=== PATIENT | male | born 1970 | race African-American/Black ===

== ENCOUNTER 2024-04-11 17:47 | Inpatient (IN) | payer OTHER ==
[2024-04-11] MEDS ORDERED: BENZONATATE 200 MG CAPSULE PO PRN (20:52)
[2024-04-11] MEDS ORDERED: ONDANSETRON *ODT* 4 MG TABLET SL PRN (20:52)
[2024-04-11] MEDS ORDERED: NALOXONE (NARCAN) HCL 4 MG/0.1 ML SPRAY NS PRN (20:52)
[2024-04-11] MEDS ORDERED: DICYCLOMINE HCL 10 MG CAPSULE PO PRN (20:52)
[2024-04-11] MEDS ORDERED: hydrOXYzine PAMOATE 25 MG CAPSULE (FP) PO PRN (20:52)
[2024-04-11] MEDS ORDERED: guaiFENesin 600 MG TABLET.ER (FP) PO PRN (20:52)
[2024-04-11] MEDS ORDERED: ACETAMINOPHEN 325 MG TABLET (FP) PO PRN (20:52)
[2024-04-11] MEDS ORDERED: POLYETHYLENE GLYCOL (HEALTHYLAX) 3350 17 GM PACKET PO PRN (20:52)
[2024-04-11] MEDS ORDERED: MAGNESIUM HYDROX 2400MG/30ML ORAL SUSPENSION 30 ML CUP PO PRN (20:52)
[2024-04-11] MEDS ORDERED: NALOXONE (NYS OPIOID OVERDOSE PROGRAM) 4 MG/0.1 ML SPRAY NS PRN (20:52)
[2024-04-11] MEDS ORDERED: LOPERAMIDE HCL 2 MG CAPSULE PO PRN (20:52)
[2024-04-11] MEDS ORDERED: IBUPROFEN 400 MG TABLET (FP) PO PRN (20:52)
[2024-04-11] MEDS ORDERED: BENZOCAINE/MENTHOL (CHLORASEPTIC ) LOZENGE MM PRN (20:52)
[2024-04-11] MEDS ORDERED: chlordiazePOXIDE HCL 25 MG CAPSULE PO PRN (20:52)
[2024-04-11 20:57] VITALS: BMI 24.8
[2024-04-11] MEDS ORDERED: GABAPENTIN 100 MG CAPSULE PO ONE (21:21)
[2024-04-11] MEDS: MELATONIN 5 MG TABLETS PO SCH (22:52)
[2024-04-11] MEDS: THIAMINE 100 MG TABLET PO SCH (22:52)
[2024-04-11] MEDS: chlordiazePOXIDE HCL 25 MG CAPSULE PO SCH (22:55)
[2024-04-11] MEDS: HYDROCHLOROTHIAZIDE 25 MG TABLET (FP) PO SCH (22:55)
[2024-04-11] MEDS: GABAPENTIN 100 MG CAPSULE PO ONE (23:01)
[2024-04-12] MEDS: METHOCARBAMOL 500 MG TABLET PO PRN (04:43)
[2024-04-12] MEDS: MAG HYDROX/AL HYDROX/SIMETH 30 ML UNIT-DOSE CUP PO PRN (04:44)
[2024-04-12] MEDS: PRENATAL VITAMINS W/ FOLIC ACID TABLET (FP) PO SCH (10:36)
[2024-04-12] MEDS: NICOTINE 14 MG/24 HOURS TOPICAL PATCH TD SCH (10:36)
[2024-04-12 11:54] LABS: CHLORIDE 108 mmol/L (98-107); POTASSIUM 3.8 mmol/L (3.5-5.1); SODIUM 140 mmol/L (136-145)
[2024-04-12 11:58] LABS: HEMATOCRIT 43.5 % (35.4-49); HEMOGLOBIN 14.8 GM/dL (11.7-16.9); MCH 32.9 pg (25.7-33.7); MCHC 34.1 g/dl (32.0-35.9); MEAN CELL VOLUME 96.7 fl (80-96); MEAN PLT VOLUME 6.7 fl (7.5-11.1); PLATELET COUNT 217 10^3/uL (134-434); RDW 13.5 % (11.9-15.9); WHITE BLOOD COUNT 3.2 K/mm3 (4.0-10.0)
[2024-04-12 12:01] LABS: ALBUMIN 3.8 g/dl (3.4-5.0); ANION GAP 6 mmol/L (4-13); BLOOD UREA NITROGEN 13.9 mg/dL (7-18); CO2 26 mmol/L (21-32); GLUCOSE,RANDOM 137 mg/dL (74-106)
[2024-04-12 12:04] LABS: CREATININE 1.1 mg/dL (0.55-1.3); SGOT/AST 21 U/L (15-37); SGPT/ALT 32 U/L (13-61)
[2024-04-12 12:05] LABS: BILIRUBIN,TOTAL 0.3 mg/dL (0.2-1); TOT PROT 7.3 g/dl (6.4-8.2)
[2024-04-12 12:07] LABS: ALK PHOS 100 U/L (45-117)
[2024-04-12] MEDS: GABAPENTIN 300 MG CAPSULE PO ONE (13:10)
[2024-04-12] MEDS: VALSARTAN 80 MG TABLET PO ONE (17:43)
[2024-04-12] MEDS ORDERED: HALOPERIDOL 5 MG TABLET PO PRN (22:00)
[2024-04-12] MEDS: diphenhydrAMINE HCL 25 MG CAPSULE (FP) PO SCH (22:36)
[2024-04-12] MEDS: SUVOREXANT 10 MG TABLET PO PRN (22:36)
[2024-04-12] MEDS: GABAPENTIN 300 MG CAPSULE PO SCH (22:36)
[2024-04-13] MEDS: chlordiazePOXIDE HCL 25 MG CAPSULE PO SCH (05:55)
[2024-04-13] MEDS: VALSARTAN 160 MG TABLET PO SCH (10:38)
[2024-04-13] MEDS: IBUPROFEN 600 MG TABLET (FP) PO PRN (14:22)
[2024-04-13] MEDS: BISMUTH SUBSALICYLATE 524 MG/30 ML PO PRN (18:44)
[2024-04-13] MEDS: NICOTINE POLACRILEX 2 MG GUM BUC PRN (22:04)
[2024-04-14] MEDS ORDERED: chlordiazePOXIDE HCL 10 MG CAPSULE PO PRN
[2024-04-14] MEDS: chlordiazePOXIDE HCL 10 MG CAPSULE PO SCH (05:50)
[2024-04-14] MEDS ORDERED: LORazepam 1 MG TABLET PO PRN (10:40)
[2024-04-14] MEDS: LORazepam 1 MG TABLET PO SCH (12:00)
[2024-04-14 12:52] VITALS: RESP 18
[2024-04-14 16:55] VITALS: BP 140/85; PULSE 86; TEMP 97.9
[2024-04-14] MEDS ORDERED: SUVOREXANT 10 MG TABLET PO PRN (22:00)
[2024-04-15] MEDS ORDERED: LORazepam 0.5 MG TABLET PO SCH (05:00)
[2024-04-15] MEDS ORDERED: chlordiazePOXIDE HCL 10 MG CAPSULE PO SCH (05:00)
[2024-04-16] MEDS ORDERED: LORazepam 0.5 MG TABLET PO ONE (05:00)
[2024-04-16] MEDS ORDERED: chlordiazePOXIDE HCL 10 MG CAPSULE PO ONE (05:00)
== END 2024-04-14 16:40 | disposition home or self-care (01) | DRG 774 ==
LOC: YASAS 17:47 → Y6N 22:20
PROVIDERS: ADMIT Allergy & Immunology; ATTEND Surgery
PROC: HZ2ZZZZ Detoxification Services for Substance Abuse Treatment (ICD-10-PCS; principal; 2024-04-11)
DX: F10.230 Alcohol dependence with withdrawal, uncomplicated (principal); F14.20 Cocaine dependence, uncomplicated; F12.20 Cannabis dependence, uncomplicated; F17.210 Nicotine dependence, cigarettes, uncomplicated; F19.24 Other psychoactive substance dependence with psychoactive substance-induced mood disorder; F19.282 Other psychoactive substance dependence with psychoactive substance-induced sleep disorder; G62.9 Polyneuropathy, unspecified; I10 Essential (primary) hypertension; Z62.810 Personal history of physical and sexual abuse in childhood; Z91.410 Personal history of adult physical and sexual abuse; Z63.8 Other specified problems related to primary support group; Z63.0 Problems in relationship with spouse or partner
CPT/HCPCS: 36415; 80053; 80305; 80307; 85027; 86780; 93005; 93010